=== PATIENT | male | born 1990 | race Caucasian/White ===

== ENCOUNTER 2022-04-11 17:59 | Inpatient (IN) | payer SELFPAY ==
[2022-04-11 18:05] VITALS: BP 137/88; PULSE 80; RESP 18; TEMP 37.3; O2SAT 97; BMI 34.0
--- NOTE | 2022-04-11 18:56 | ECG_ITS ---
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 Measurements Intervals Alexis Rate: 94 P: 56 FL: 138 QRS: 63 QRSD: 103 T: 26 QT: 349 QTc: 437 Interpretive Statements SINUS RHYTHM No previous ECG available for comparison Electronically Signed On 04-11-2022 22:52:39 CDT by Meek Mead M.D. [id number]
--- NOTE | 2022-04-11 18:56 | ED.C_ITS ---
HPI - Psych General: Chief Complaint: Psychiatric Symptoms Stated Complaint: SI Time Seen by Provider: 04/11/22 18:13 History of Present Illness: 31-year-old male presents emergency department reporting he has suicidal thoughts and ideations reports a known history of drug and alcohol abuse reports he drank about 8 shots of fireball prior to arrival he reports having concerns about his wellbeing about his kids and his family reports that he wants to end his life and wants help the patient reports last used methamphetamine in the last week. The patient reports no active plan at this time presents to the ER for further assessment and management Associated symptoms: Reports depression and suicidal ideation Review of Systems General: Reports: 10 or more systems reviewed and unremarkable except in HPI and below Const: Denies: fever(s), chills, fatigue or malaise Eyes: Denies: change in vision or blurry vision Card: Denies: chest pain or palpitations Resp: Denies: dyspnea or productive cough GI: Denies: abdominal pain, nausea or vomiting : Denies: flank pain Musc: Denies: extremity pain or extremity swelling Skin/Breast: Denies: rash or pruritus Neuro: Denies: headache(s) Psych: Reports: anxiety, depression, hopelessness and suicidal ideation Williams/Lymph: Denies: easy bleeding All/Imm: Denies: urticaria, throat swelling or facial swelling PFSH ED PFSH: Social History Smoking and tobacco status: current every day smoker cigarettes Packs smoked per day: 1.5 Alcohol intake: never Adopted: No Caregiver/support person: No Lives independently: Yes Current occupational status: employed Sexually active: Yes Current gender identity: Male Physical Exam Narrative: EXAM NARRATIVE: Patient appears generally intoxicated smell of alcohol noted on breath slurred speech appreciated no focal neurodeficits noted Const: COMMON NORMALS: no acute distress, patient oriented x3 and healthy appearing HENMT: COMMON NORMALS: normocephalic and atraumatic HEAD & SCALP: normocephalic and atraumatic Eye: COMMON NORMALS: Equal, round and reactive pupils present and EOMs intact bilaterally PUPIL: Yes Equal, round and reactive pupils present Neck/C-Spine: COMMON NORMALS: full ROM, supple and no JVD Lymph: LYMPHATIC: no lymphadenopathy noted Chest: COMMONS NORMALS: normal inspection of the chest and normal palpation of entire chest wall Resp: COMMON NORMALS: normal respiratory effort, No retractions and clear to auscultation bilaterally EFFORT & INSPECTION: Yes able to speak in complete sentences and Yes symmetric chest movement AUSCULTATION: clear to ausc ultation bilaterally Cardio: COMMON NORMALS: no JVD, regular rate and regular rhythm RATE: regular rate RHYTHM: regular rhythm GI: COMMON NORMALS: Normal to inspection, nondistended, normoactive bowel sounds present, Soft to palpation and non-tender INSPECTION: Yes normal to inspection PALPATION: Yes Soft to palpation : COMMON NORMALS: Yes no CVA tenderness BLADDER/KIDNEY EXAM: Yes no CVA tenderness Back/Pelvis: COMMON NORMALS: no CVA tenderness Extremity: COMMON NORMALS: normal to inspection and full ROM Neuro: COMMON NORMALS: patient oriented x3, CN's II-XII intact bilaterally, moves all extremities and no focal motor deficits Psych: COMMON NORMALS: mental status grossly normal, Normal thought process present, cooperative and normal affect; negative for denies suicidal ideation (Reports ongoing suicidal ideations) THOUGHT PROCESS: Normal thought process present Skin: COMMON NORMALS: no rashes or lesions noted GENERAL SKIN EXAM: no rashes or lesions noted Course Vital Signs: Vital signs: Vital Signs Temperature 99.1 F 04/11/22 18:05 Pulse Rate 80 04/11/22 18:05 Respiratory Rate 18 04/11/22 18:05 Blood Pressure 137/88 04/11/22 18:05 Pulse Oximetry 97 04/11/22 18:05 MDM - Psych Medical Decision Making Due to the patient sitting addition medical clearance will be obtained the patient lab work and imaging will be obtained we will continue to follow the need for psychiatric placement. A sitter order was ordered Patient was finally medically cleared for psychiatric placement discussed the patient's case with Dr. Taylor is granted acceptance to the neuropsychiatric unit. Lab Data : 04/11/22 18:30 04/11/22 18:30 Laboratory Results WBC 12.8 10^3/uL (4.0-10.0) H 04/11/22 18:30 RBC 4.89 10^6/uL (4.1-5.3) 04/11/22 18:30 Hgb 14.4 g/dL (11.7-16.6) 04/11/22 18:30 Hct 45.5 % (42.0-52.0) 04/11/22 18:30 MCV 93.0 fl (80-94) 04/11/22 18: MCH 29.4 pg (28.0-34.0) 04/11/22 18: MCHC 31.6 g/dL (30.0-36.0) 04/11/22 18: RDW 13.3 % (12.1-15.1) 04/11/22 18: Plt Count 404 10^3/cmm (130-400) H 04/11/22 18:30 MPV 9.8 fL (7.4-10.4) 04/11/22 18: Neut % (Auto) 61.7 % 04/11/22 18: Lymph % (Auto) 28.7 % 04/11/22 18: [place] % (Auto) 7.9 % 04/11/22 18:30 Eos % (Auto) 1.1 % 04/11/22 18: Baso % (Auto) 0.2 % 04/11/22 18: Neut # (Auto) 7.90 10^3/uL (1.8-7.7) H 04/11/22 18:30 Lymph # (Auto) 3.7 10^3/uL (0.8-4.8) 04/11/22 18: [place] # (Auto) 1.0 10^3/uL (0.2-0.9) H 04/11/22 18:30 Eos # (Auto) 0.1 10^3/uL (0.0-0.8) 04/11/22 18: Baso # (Auto) 0.0 10^3/uL (0.0-0.1) 04/11/22 18: Nucleated RBC % (auto) 0 % 04/11/22: Nucleated RBCs # 0.0 /100WBC 04/11/22 18:30 Sodium 139 mmol/L (136-145) 04/11/22 18:30 Potassium 3.4 mmol/L (3.5-5.1) L 04/11/22 18:30 Chloride 102 mmol/L (98-107) 04/11/22 18: Carbon Dioxide 19 mmol/L (22-29) L 04/11/22 18:30 Anion Gap 21.4 (5-19) H 04/11/22 18:30 BUN 7 mg/dL (6-20) 04/11/22 18:30 Creatinine 0.6 mg/dL (0.7-1.2) L 04/11/22 18:30 GFR Calculation 159.3 mL/min (90-130) H 04/11/22 18: Glucose 93 mg/dL (65-115) 04/11/22 18: Calculated Osmolality 286 mOsm/kg (285-295) 04/11/22 18: Calcium 9.6 mg/dL (8.5-10.5) 04/11/22 18: Total Bilirubin 0.3 mg/dL (0.15-1.2) 04/11/22: AST 14 U/L (0-40) 04/11/22 18: ALT 11 U/L (0-41) 04/11/22 18: Alkaline Phosphatase 121 IU/L (40-130) 04/11/22 18: Total Protein 9.0 g/dL (6.6-8.7) H 04/11/22 18: Albumin 4.9 g/dL (3.5-5.2) 04/11/22 18: Globulin 4.1 g/dL (1.3-4.6) 04/11/22 18: Urine Color Yellow (Yellow) 04/11/22 18: Urine Appearance Clear (CLEAR) 04/11/22 18: Urine pH 6.5 (5-7) 04/11/22 18: Ur Specific [place] 1.010 (1.005-1.030) 04/11/22 18: Urine Protein Neg (Negative) 04/11/22 18: Urine Glucose (UA) Norm (Normal) 04/11/22 18: Urine Ketones Negative (Negative) 04/11/22: Urine Blood Neg (Negative) 04/11/22: Urine Nitrate Negative (Negative) 04/11/22 18: Urine Bilirubin Neg (Negative) 04/11/22 18: Urine Urobilinogen Norm mg/dL (Negative) 04/11/22 18: Ur Leukocyte Esterase Negative (Negative) 04/11/22 Salicylates < 0.3 mg/dL (3-10) L 04/11/22 18:30 Urine Opiates Screen Negative ng/mL (Negative) 04/11/22 18:30 Acetaminophen < 5.0 ug/mL (10-30) L 04/11/22 18:30 Ur Barbiturates Screen Negative ng/mL (Negative) 04/11/22 18:30 Ur Phencyclidine Scrn Negative ng/mL (Negative) 04/11/22 18:30 Ur Amphetamines Screen Positive ng/mL (Negative) H 04/11/22 18:30 U Benzodiazepines Scrn Negative ng/mL (Negative) 04/11/22 18:30 Urine Cocaine Screen Negative ng/mL (Negative) 04/11/22 18:30 U Marijuana (THC) Screen Positive ng/mL (Negative) H 04/11/22 18:30 Ethyl Alcohol 163 mg/dL (0-10) H 04/11/22 18:30 Discharge Plan Discharge Patient Disposition: Admitted As Inpatient Admit Provider: Karlos Taylor Clinical Impression: Suicidal ideation Condition: Stable Coding Level of Care Code ED Certified Orthotist/Pedorthist for Lisa Fwd Exam Comprehensive
[2022-04-11 19:11] LABS: Basophils % 0.2 %; Eosinophils # 0.1 10^3/uL (0.0-0.8); Eosinophils % 1.1 %; Hematocrit 45.5 % (42.0-52.0); Hemoglobin 14.4 g/dL (11.7-16.6); Lymphocytes # 3.7 10^3/uL (0.8-4.8); Lymphocytes % 28.7 %; Mean Corpuscular HGB Conc 31.6 g/dL (30.0-36.0); Mean Corpuscular Hemoglobin 29.4 pg (28.0-34.0); Mean Platelet Volume 9.8 fL (7.4-10.4); Monocytes % 7.9 %; Neutrophils % 61.7 %; Nucleated Red Blood Cells % 0 %; Platelet Count 404 10^3/cmm (130-400); Red Blood Count 4.89 10^6/uL (4.1-5.3); Red Cell Distribution Width 13.3 % (12.1-15.1); White Blood Count 12.8 10^3/uL (4.0-10.0)
[2022-04-11 19:15] LABS: Add Urine Microscopic? NO; Charge for UA Resulting for Rev
--- NOTE | 2022-04-11 19:17 | PC.NURSE ---
[id number] Patient cooperative, diagnostics obtained. Agrees to stay if that is the plan. Reports feeling suicidal but has no plan. Patient having situational stress with s.o and work.
[2022-04-11 19:22] LABS: Bilirubin Urine Neg (Negative); Blood Urine Neg (Negative); Glucose Urine UA Norm (Normal); Ketones Urine Negative (Negative); Leukocyte Esterase Urine Negative (Negative); Nitrate Urine Negative (Negative); Protein Urine Neg (Negative); Urine Appearance Clear (CLEAR); Urine Color Yellow (Yellow); Urobilinogen Urine Norm (Negative); pH Urine 6.5 (5-7)
[2022-04-11 19:27] LABS: Alanine Aminotransferase 11 U/L (0-41); Albumin Level 4.9 g/dL (3.5-5.2); Alcohol Level 163 mg/dL (0-10); Alkaline Phosphatase 121 IU/L (40-130); Anion Gap 21.4 (5-19); Aspartate Amino Transferase 14 U/L (0-40); Blood Urea Nitrogen 7 mg/dL (6-20); Calcium 9.6 mg/dL (8.5-10.5); Carbon Dioxide 19 mmol/L (22-29); Chloride 102 mmol/L (98-107); Globulin 4.1 g/dL (1.3-4.6); Glomerular Filtration Rate 159.3 mL/min (90-130); Glucose 93 mg/dL (65-115); Osmolality Calculated 286 mOsm/kg (285-295); Potassium 3.4 mmol/L (3.5-5.1); Sodium 139 mmol/L (136-145); Total Bilirubin 0.3 mg/dL (0.15-1.2)
[2022-04-11 19:31] LABS: Amphetamines Screen Urine Positive (Negative); Barbiturates Screen Urine Negative (Negative); Benzodiazepines Screen Urine Negative (Negative); Cocaine Screen Urine Negative (Negative); Opiate Screen Urine Negative (Negative); PCP Screen Urine Negative (Negative); THC Screen Urine Positive (Negative)
[2022-04-11 19:32] LABS: Acetaminophen < 5.0 ug/mL (10-30); Salicylate < 0.3 mg/dL (3-10)
[2022-04-11 21:32] VITALS: BP 140/86; PULSE 98; RESP 16; TEMP 36.5; O2SAT 96
[2022-04-11 21:41] LABS: Adenovirus Not Detected (NOT DETECT); Chlamydia Pneumoniae Not Detected (NOT DETECT); Coronavirus 229E,HKU1,NL63,OC4 Not Detected (NOT DETECT); Human Metapneumovirus Not Detected (NOT DETECT); Human Rhinovirus/Enterovirus Not Detected (NOT DETECT); Influenza A Not Detected (NOT DETECT); Influenza A H1 Not Detected (NOT DETECT); Influenza A H1-2009 Not Detected (NOT DETECT); Influenza A H3 Not Detected (NOT DETECT); Influenza B Not Detected (NOT DETECT); Mycoplasma Pneumoniae Not Detected (NOT DETECT); Parainfluenza Virus Type 1 Not Detected (NOT DETECT); Parainfluenza Virus Type 2 Not Detected (NOT DETECT); Parainfluenza Virus Type 3 Not Detected (NOT DETECT); Parainfluenza Virus Type 4 Not Detected (NOT DETECT); Respiratory Syncytial Virus A Not Detected (NOT DETECT); Respiratory Syncytial Virus B Not Detected (NOT DETECT); SARS-COV-2 Not Detected (NOT DETECT)
[2022-04-11 21:59] VITALS: BMI 32.5
--- NOTE | 2022-04-11 22:01 | PC.NURSE ---
Patient transferred to NPU.
[2022-04-11 22:33] VITALS: BP 138/75; PULSE 97; RESP 20; TEMP 36.8; O2SAT 98
[2022-04-12 06:00] VITALS: BP 97/57; PULSE 79; RESP 16; TEMP 36.9; O2SAT 99
[2022-04-12] MEDS: multivitamin therapeutic Tablet 1 TAB PO (09:33)
[2022-04-12] MEDS: folic acid 1 mg Tablet PO (09:33)
[2022-04-12] MEDS: thiamine 100 mg Tablet PO (09:33)
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
[2022-04-12 13:04] VITALS: BP 100/67; PULSE 65; RESP 16; TEMP 36.8; O2SAT 98
[2022-04-12 20:14] VITALS: BP 113/67; PULSE 57; RESP 16; O2SAT 99
[2022-04-13 06:00] VITALS: BP 112/67; PULSE 60; RESP 17; O2SAT 99
[2022-04-13] MEDS: multivitamin therapeutic Tablet 1 TAB PO (08:17)
[2022-04-13] MEDS: folic acid 1 mg Tablet PO (08:17)
[2022-04-13] MEDS: thiamine 100 mg Tablet PO (08:17)
[2022-04-13] MEDS: fluoxetine 20 mg Capsule PO (10:09)
[2022-04-13 14:00] VITALS: BP 98/57; PULSE 72; RESP 16; TEMP 36.9; O2SAT 98
--- NOTE | 2022-04-13 15:58 | W.PM.NPUPNS ---
Subjective NPU Subjective: Patient presents today reporting that he did not realize he had taken the Prozac but he must of taken it with his vitamins. He reported he did not have any side effects or concerns with the medication and certainly was not feeling worse and was actually feeling a little better. He reports that he is continuing to be committed to getting help with his depression and agreed for us to take it a day at a time. Mental Status Exam MSE Comments: This is a overweight, white male in hospital scrubs with limited grooming and adequate eye contact. No abnormal movements except for psychomotor retardation. Cooperative with exam in no acute distress. Speech was normal rate and volume. Mood described as a little better, affect less subdued. Thought process, organized. Thought content: patient denies suicidal or homicidal ideation, no delusions reported or noted, and denies auditory or visual hallucinations. Attention and concentration are intact and memory is reliable but none were formally tested. He is alert and oriented three times. Insight and judgment are fair. Impulse control is fair. Vitals/I&O/Wt Last Vital Signs Temp 98.2 F 04/13/22 13:04 Pulse 65 04/13/22 13:04 Resp 16 04/13/22 13:04 BP 100/67 04/13/22 13:04 Pulse Ox 98 04/13/22 13:04 Weight last 48 hrs Weight 99.79 kg Weight 99.79 kg Data NPU : 04/11/22 18:30 04/11/22 18:30 A&P Assessment and plan (1) Methamphetamine use disorder, severe: Status: Acute (2) Cannabis use disorder, severe, dependence: Status: Acute (3) Major depressive disorder, single episode: Status: Acute (4) PTSD (post-traumatic stress disorder): Status: Acute (5) Suicidal ideation: Status: Acute Plan This is a 31 year old white male with a history of trauma and genetic loading for mental health and addiction issues who 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 We discussed the risks, benefits and alternatives of starting Prozac and he understood and agreed to proceed as is documented in this note. 1.? Continue current medication. Started Prozac 20 mg once daily. 2.? Encourage individual, group and milieu therapy 3.? Continue q-15 minute check for safety 4.? Recommend sober living treatment at the highest level of care to which the patient is willing to commit.? Involuntary Hold Information 96 Hour Hold: 96 Hour Involuntary Admission: No Attestations NPU Medical Necessity Statement*: Inpatient hospitalization is medically necessary and the clinically appropriate intervention at this time. We will monitor medications and make changes as indicated. Likely length of stay is 2-4 days. Coding Level of Care Code Acute Croze Cutter for [facility] Diagnoses Methamphetamine use disorder, severe F15.20 Cannabis use disorder, severe, dependence F12.20 Major depressive disorder, single episode F32.9 PTSD (post-traumatic stress disorder) F43.10 Suicidal ideation R45.850
[2022-04-13 20:23] VITALS: BP 117/78; PULSE 76; RESP 18; TEMP 36.8; O2SAT 97
[2022-04-14 06:00] VITALS: BP 106/63; PULSE 76; RESP 16; TEMP 36.5; O2SAT 98
[2022-04-14] MEDS: folic acid 1 mg Tablet PO (08:55)
[2022-04-14] MEDS: fluoxetine 20 mg Capsule PO (08:55)
[2022-04-14] MEDS: multivitamin therapeutic Tablet 1 TAB PO (08:55)
[2022-04-14] MEDS: thiamine 100 mg Tablet PO (08:55)
[2022-04-14 14:00] VITALS: BP 124/66; PULSE 69; RESP 17; TEMP 36.6; O2SAT 96
--- NOTE | 2022-04-14 14:21 | W.PM.NPUPNS ---
Subjective NPU Subjective: Patient presents today reporting that he is doing a little bit better. He reports that he is now starting to have a little cabin fever and is hopeful for discharge soon. He denies any side effects to the medication and reports being away from his use has been quite helpful. We agreed we would connect him with the social work team the morning to make sure that he has proper follow-up for his situation. We discussed the likelihood of discharge in the next 48 hours. Mental Status Exam MSE Comments: This is a overweight, white male in hospital scrubs with limited grooming and adequate eye contact. No abnormal movements . Cooperative with exam in no acute distress. Speech was normal rate and volume. Mood described as better, affect congruent. Thought process, organized. Thought content: patient denies suicidal or homicidal ideation, no delusions reported or noted, and denies auditory or visual hallucinations. Attention and concentration are intact and memory is reliable but none were formally tested. He is alert and oriented three times. Insight and judgment are fair. Impulse control is fair. Vitals/I&O/Wt Last Vital Signs Temp 97.7 F 04/14/22 06:00 Pulse 76 04/14/22 06:00 Resp 16 04/14/22 06:00 BP 106/63 04/14/22 06:00 Pulse Ox 98 04/14/22 06:00 Weight last 48 hrs Weight 99.79 kg Weight 99.79 kg Data NPU : 04/11/22 18:30 04/11/22 18:30 A&P Assessment and plan (1) Methamphetamine use disorder, severe: Status: Acute (2) Cannabis use disorder, severe, dependence: Status: Acute (3) Methamphetamine abuse: Status: Acute (4) Major depressive disorder, single episode: Status: Acute (5) PTSD (post-traumatic stress disorder): Status: Acute (6) Suicidal ideation: Status: Acute Plan This is a 31 year old white male with a history of trauma and genetic loading for mental health and addiction issues who 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 We discussed the risks, benefits and alternatives of starting Prozac and he understood and agreed to proceed as is documented in this note. 1.? Continue current medication.? Started Prozac 20 mg once daily. 2.? Encourage individual, group and milieu therapy 3.? Continue q-15 minute check for safety 4.? Recommend sober living treatment at the highest level of care to which the patient is willing to commit.? 5. Likely discharge tomorrow. Involuntary Hold Information 96 Hour Hold: 96 Hour Involuntary Admission: No Attestations NPU Medical Necessity Statement*: Inpatient hospitalization is medically necessary and the clinically appropriate intervention at this time. We will monitor medications and make changes as indicated.? Likely length of stay is 1-3 days. Coding Level of Care Code Acute High School Agriculture Teacher for Lisa Neal Diagnoses Methamphetamine use disorder, severe F15.20 Cannabis use disorder, severe, dependence F12.20 Methamphetamine abuse F15.10 Major depressive disorder, single episode F32.9 PTSD (post-traumatic stress disorder) F43.10 Suicidal ideation R45.857
[2022-04-14] MEDS: trazodone 50 mg Tablet PO (20:17)
[2022-04-14 20:23] VITALS: BP 118/78; PULSE 62; RESP 18; TEMP 36.5; O2SAT 100
[2022-04-14 21:43] VITALS: BP 118/78; PULSE 62; RESP 18; TEMP 36.5; O2SAT 100
[2022-04-15 06:00] VITALS: BP 102/52; PULSE 56; RESP 16; TEMP 36.7; O2SAT 99
[2022-04-15] MEDS: fluoxetine 20 mg Capsule PO (08:21)
[2022-04-15] MEDS: folic acid 1 mg Tablet PO (08:21)
[2022-04-15] MEDS: thiamine 100 mg Tablet PO (08:21)
[2022-04-15] MEDS: multivitamin therapeutic Tablet 1 TAB PO (08:21)
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
[2022-04-15 12:06] VITALS: BP 102/52; PULSE 56; RESP 16; TEMP 36.7; O2SAT 99
--- NOTE | 2022-04-15 12:15 | PC.NURSE ---
DISCHARGE NOTE DISCHARGE TEACHING COMPLETED. REVIEWED ALL APPOINTMENTS. EDUCATION COMPLETED WITH MEDICATIONS. SCRIPTS WILL BE MEDS TO BED. VSS. DENIES SI/HI AND AVH AT THIS TIME. DENIES PAIN. ALL QUESTIONS ANSWERED AND SUPPORT VOICED. LEAVING BY P0V AND DANNY. NO DISTRESS NOTED AT THIS TIME. SIGNED BELONGINGS SHEET. LEFT WITH ALL BELONGINGS.
== END 2022-04-15 13:10 | disposition home or self-care (01) | DRG 881 ==
LOC: ER 19:17 → NP 20:54
PROVIDERS: Admitting Provider Psychiatry & Neurology Psychiatry; Emergency Provider Emergency Medicine; Visit Provider Psychiatry & Neurology Psychiatry
DX: F32.9 Major depressive disorder, single episode, unspecified (principal); R45.851 Suicidal ideations; F15.10 Other stimulant abuse, uncomplicated; F10.10 Alcohol abuse, uncomplicated; Z81.8 Family history of other mental and behavioral disorders; F17.210 Nicotine dependence, cigarettes, uncomplicated; F43.10 Post-traumatic stress disorder, unspecified; F12.20 Cannabis dependence, uncomplicated
CPT/HCPCS: 80053; 80306; 80307; 81003; 85025; 87635; 93005; 97165; 99285